=== PATIENT | female | born 1995 | race Caucasian/White ===

== ENCOUNTER 2019-11-13 19:59 | Emergency (ER) | payer OTHER ==
[2019-11-13] MEDS ORDERED: FAMOTIDINE 20 MG TABLET PO ONE (21:55)
--- NOTE | 2019-11-13 22:00 | ER Document Report ---
ED Allergic Reaction - General Chief Complaint: Allergic Reaction Stated Complaint: POSS ALLERGIC REACTION Time Seen by Provider: 11/13/19 21:43 Primary Care Provider: RAKEL HEAD MD [Primary Care Provider] - Follow up as needed Mode of Arrival: Medic Information source: Patient, Emergency Med Personnel Notes: Patient is a 24-year-old female brought in by EMS with a complaint of allergic reaction to fire ants. Patient states around 7 PM tonight she was walking through her yard going back to the house and inadvertently stepped into a fire at bed. She was bitten several times on the left foot. She immediately started to get reaction and contacted EMS. Her EpiPen had since her last incident was in 2016 and did not have them with her. EMS did respond gave her epi subcu and Solu-Medrol 125 and 50 of Benadryl. And brought her in the emergency room. She had started getting diffuse urticaria and hives. She was very pruritic according to reports. Even though she had no swelling of the lips and tongue at the time she felt short of breath and had difficulty swallowing. TRAVEL OUTSIDE OF THE [place] IN LAST 30 DAYS: No - HPI Onset: Just prior to arrival Onset/Duration: Sudden Quality of pain: Achy Severity: Moderate Pain Level: 3 Identified cause: Yes Food exposure: Other Other exposure: Other - Parents Skin rash / itching: Diffuse, "Hives" Swelling: Face, Throat Trouble swallowing / speaking: Moderate Associated symptoms: None Similar symptoms previously: Yes Recently seen / treated by doctor: No - Related Data Allergies/Adverse Reactions: fire ant Allergy (Verified 11/13/19 20:08) Past Medical History - General Information source: Patient, Emergency Med Personnel - Social History Smoking Status: Never Smoker Cigarette use (# per day): No Chew tobacco use (# tins/day): No Smoking Education Provided: No Frequency of alcohol use: None Drug Abuse: None Lives with: Family Family History: Reviewed & Not Pertinent Patient has homicidal ideation: No Past Surgical History: Reports: Hx Rectal Surgery - colonoscopy Review of Systems - Review of Systems Constitutional: No symptoms reported EENT: See HPI, Difficulty swallowing, Throat swelling, Mouth swelling Cardiovascular: No symptoms reported Respiratory: See HPI, Short of breath Gastrointestinal: No symptoms reported Genitourinary: No symptoms reported Female Genitourinary: No symptoms reported Musculoskeletal: No symptoms reported Skin: See HPI, Lesions, Other - Ant bite Hematologic/Lymphatic: No symptoms reported Neurological/Psychological: No symptoms reported -: Yes All other systems reviewed and negative Physical Exam - Vital signs Vitals: Resp Pulse Ox 20 100 11/13/19 20:02 11/13/19 20:02 Interpretation: Tachycardic - Notes Notes: PHYSICAL EXAMINATION: GENERAL: Patient is well-nourished well-developed 24-year-old female no apparent distress on physical exam today. HEAD: Atraumatic, normocephalic. EYES: Pupils equal round and reactive to light, extraocular movements intact, conjunctiva are normal. ENT: Examination patient's head and upper airway showed nasal mucosa be mildly erythematous and edematous no rhinorrhea is noted at this time. No frontal or maxillary sinus tenderness to palpation. TMs are normal in appearance no bulging or retraction. Examination of posterior pharynx and lips show no signs of angioedema. Bilateral lips are normal in appearance. Posterior pharynx shows no swelling of the uvula or tonsillar area. Currently no erythema throughout the oral cavity. The tongue also does not appear to be swollen at this time. Patient's airway is currently patent. NECK: Normal range of motion, supple without lymphadenopathy LUNGS: Breath sounds clear to auscultation bilaterally and equal. No wheezes rales or rhonchi. HEART: Regular rate and rhythm without murmurs Musculoskeletal: Normal range of motion, no pitting or edema. No cyanosis. NEUROLOGICAL: Normal speech, normal gait. Normal sensory, motor exams PSYCH: Normal mood, normal affect. SKIN: There is no sign of any type stinger or other foreign bodies in the area. Currently there is no major swelling in that area as well. Examination patient's left foot shows that there are 3 areas on the dorsum of the foot that appear to be ant bites. Course - Re-evaluation Re-evalutation: 11/13/19 22:01 Patient was giving epi subcu in route by EMS along with 125 mg Solu-Medrol IV and 50 Benadryl. On reexamination patient is much improved. She no longer feels like her throat swelling she is breathing normally. She is not tachycardic anymore. She still somewhat pleuritic but it is declining in its nature. At this point I feel safe for patient to be discharged home. I will send her home on a Medrol Dosepak, Pepcid 20 mg twice daily for 2 weeks. And she will continue with the Benadryl every 6 hours as needed for itching. Susie linton is not going back to work until Friday. 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 Patient has been again warned that the steroids can reduce her immune system so she needs to be careful by wearing a mask out in public at work and around family numbers. - Vital Signs Vital signs: Temp Pulse Resp BP Pulse Ox 13 110/60 99 11/13/19 21:01 11/13/19 21:00 11/13/19 21:01 Discharge - Discharge Clinical Impression: Allergic reaction Qualifiers: Encounter type: initial encounter Qualified Code(s): T78.40XA - Allergy, unspecified, initial encounter Condition: Stable Disposition: HOME, SELF-CARE Instructions: Acute Allergic Reaction ([facility]) Additional Instructions: As we discussed home and rest. Start steroid taper tomorrow. You can continue as we discussed with Benadryl 50 mg every 6 hours for itch. Also and placing you on famotidine/Pepcid which will also help with the reaction. Take 1 pill twice a day for the next 2 weeks. Should you have any concerns or problems you can return to ER for reevaluation. Highly suggest that you carry the EpiPen with you at all times. As we discussed these reactions get more violent and more acute in the response each time you are exposed. Prescriptions: Famotidine [Acid Waste Transportation Technician] 20 mg PO BID #20 tablet Epinephrine [Epipen 2-Lance] 0.3 mg IJ ASDIR PRN #1 [email or web address] PRN Reason: Methylprednisolone [Medrol Dosepack (4 mg/Tab) 21 Tab/Dosepak] 4 mg PO ASDIR PRN 6 Days #21 [email or web address] PRN Reason: Referrals: RAKEL HEAD MD [Primary Care Provider] - Follow up as needed
[2019-11-13 22:22] VITALS: BP 122/76
== END 2019-11-13 22:14 | disposition home or self-care (01) ==
LOC: ER 19:59
DX: T63.421A Toxic effect of venom of ants, accidental (unintentional), initial encounter (principal); L50.9 Urticaria, unspecified; R06.02 Shortness of breath; R13.10 Dysphagia, unspecified; Y93.89 Activity, other specified; Y92.007 Garden or yard of unspecified non-institutional (private) residence as the place of occurrence of the external cause
CPT/HCPCS: 99283